=== PATIENT | female | born 1995 | race Two or more races ===

== ENCOUNTER → 2016-10-06 | Outpatient (CLI) | payer OTHER | END | disposition home or self-care (01) | LOC: CLAB 17:11 | DX: H31.2 Hereditary choroidal dystrophy (principal); Z79.899 Other long term (current) drug therapy | CPT/HCPCS: 36415 ==

== ENCOUNTER → 2016-10-11 | Outpatient (CLI) | payer OTHER | END | disposition home or self-care (01) | LOC: CLAB 15:12 | DX: H31.2 Hereditary choroidal dystrophy (principal) | CPT/HCPCS: 82139 ==

== ENCOUNTER → 2016-12-20 | Outpatient (CLI) | payer OTHER ==
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
== END | disposition home or self-care (01) ==
LOC: CMRI 16:59
DX: M25.462 Effusion, left knee (principal); M25.552 Pain in left hip; M23.242 Derangement of anterior horn of lateral meniscus due to old tear or injury, left knee; R60.0 Localized edema
CPT/HCPCS: 73721